=== PATIENT | male | born 1935 | race Caucasian/White ===

== ENCOUNTER 2025-03-26 12:29 | Emergency (ER) | payer OTHER, SELFPAY ==
--- NOTE | ~2025-03-26 | XR_ITS ---
XR shoulder RT min 2V 03/26/2025 13:12 Indication: Right shoulder pain after fall Procedure: 4 views right shoulder Comparison: No prior studies for comparison. Findings: There is moderate-severe polyarticular osteoarthritis of the shoulder. No fracture or traum atic malalignment. No soft tissue abnormality. No foreign bodies. Impression: 1: Moderate-severe polyarticular osteoarthritis. Reviewed, dictated and finalized at location A. Impression: 1: Moderate-severe polyarticular osteoarthritis.
--- NOTE | ~2025-03-26 | CT_ITS ---
EXAMINATION: CT cervical spine wo con DATE: 03/26/2025 12:59 INDICATION: Fall with head injury TECHNIQUE: Computed tomography (CT) of the cervical spine was performed without intravenous contrast. Automated exposure control and iterative reconstruction technique were employed. The dose-length pro duct was 378.33 mGy-cm. COMPARISON: None FINDINGS: Severe osteoarthritis at the atlantoaxial articulation. 8 degrees cervical levocurvature. There is st raightening of the normal cervical lordosis. 1-2 mm anterolisthesis C7 on T1 and T2 on T3. Vertebral body heights are normal. No acute fracture. Severe disc height loss with degenerative endplate change s at C4-C5, C5-C6, C6-C7 and T1-T2, moderate to severe disc height loss at C7-T1, moderate disc heigh t loss at C3-C4 and T2-T3 and mild disc height loss at C2-C3. There posterior disc osteophyte complex es contributing to mild central canal stenosis at C3-C4 through C6-C7. Suggestion of disc bulges with minimal disc height loss at C7-T1 and T1-T2. There is multilevel severe cervical facet and uncoverte bral osteoarthritis. Secondary osseous fusion across the right C2-C3 facet joint. There is moderate n eural from stenosis on the left at C2-C3, C4-C5, C5-C6 and and T2-T3 and on the left at C3-C4, C5-C6 and T2-3. Mild neural from stenosis at the remaining cervical and upper thoracic neural foramina. Ath erosclerotic calcifications at the bilateral carotid bulbs. Cervical soft tissues are otherwise unrem arkable. Mild calcified biapical pleural-parenchymal scarring. IMPRESSION: 1. Severe cervical spondylosis with no acute osseous abnormality. Reviewed, dictated and finalized at location A.
--- NOTE | ~2025-03-26 | CT_ITS ---
EXAMINATION: CT brain wo con DATE: 03/26/2025 12:59 INDICATION: Fall with posterior head injury TECHNIQUE: Computed tomography (CT) of the head was performed without intravenous contrast. Sagittal and coronal reconstructions were performed. The mA was adjusted according to patient size. Iterative reconstruction technique was employed. The dose-length product was 605.33 mGy-cm. COMPARISON: None FINDINGS: Small right posterior parietal scalp contusion. No fracture. No acute intracranial hemorrhage, acute infarction or abnormal extra axial fluid collection. There is mild scattered white matter hypoattenua tion consistent with chronic small vessel ischemic disease. Symmetric prominence of the sulci consist ent with mild age-appropriate diffuse cerebral volume loss. Ventricles are normal and symmetric. No m ass/mass effect. Changes of bilateral intraocular lens replacement. The orbits and mastoid air cells are normal. Mucosal thickening and scattered mucous in the paranasal sinuses. IMPRESSION: 1. No fracture or acute intracranial process. 2. Age-related changes including mild diffuse volume loss and mild scattered white matter hypoattenua tion consistent with chronic small vessel ischemic disease. 3. Sinus disease. Reviewed, dictated and finalized at location A. IMPRESSION: 1. No fracture or acute intracranial process. 2. Age-related changes including mild diffuse volume loss and mild scattered wh ite matter hypoattenuation consistent with chronic small vessel ischemic diseas e. 3. Sinus disease.
[2025-03-26 12:37] VITALS: BP 150/84; PULSE 86; RESP 16; TEMP 36.8; O2SAT 98
--- NOTE | 2025-03-26 13:45 | ED.GENADULT ---
HPI - General Adult General Chief complaint: Fall Stated complaint: fall Time Seen by Provider: 03/26/25 13:06 History of Present Illness HPI narrative: 89-year-old male presenting to the emergency department for evaluation for laceration to his posterior scalp. Patient is preparing for a move and was getting boxes off a shelf when he stepped backwards, missed a step and did strike his head. Patient states he has been feeling well prior to and after the head injury. Patient denies any complaint other than his posterior scalp. Patient is not on any blood thinners. Related Data Home Medications ?Medication ?Instructions ?Recorded ?Confirmed ?Last Taken ?Type ascorbic acid (vitamin C) 500 mg mg PO 05/10/23 05/10/23 Unknown History capsule citalopram 20 mg tablet 20 mg PO DAILY 05/10/23 05/10/23 Unknown History doxazosin 4 mg tablet 4 mg PO DAILY 05/10/23 05/10/23 Unknown History glucosamine sulfate 1,000 mg tablet 1,000 mg PO BID 05/10/23 05/10/23 Unknown History multivitamin 1 tablet PO DAILY 05/10/23 05/10/23 Unknown History omeprazole 20 mg capsule,delayed 20 mg PO DAILY 05/10/23 05/10/23 Unknown History release simvastatin 40 mg tablet 40 mg PO DAILY 05/10/23 05/10/23 Unknown History Allergies Allergy/AdvReac Type Severity Reaction Status Date / Time amlodipine Allergy Unknown fatigue Verified 03/26/25 12:51 Review of Systems Review of Systems: All systems reviewed & are unremarkable except as noted in HPI and below PMFSH Family History Family History (Updated 05/10/23 @ 11:18 by Colette Ramos CMA) Father Heart disease Mother Brain cancer Grandparent Cerebrovascular accident Social History Social History (Updated 05/10/23 @ 11:12 by Colette Ramos CMA) Smoking status: Never smoker Alcohol intake: current Lack of Transportation: No Lack of Food: Never True Current Housing: I Have Housing Concerned About Future Housing: No Difficulty Paying Gas/Electric Bills: No Difficulty Paying for Meds: No Currently Unemployed: No Education: Trade/Vocational Certificate Difficulty w/ Childcare or Family Care: No Exam Narrative: APPEARANCE: Well appearing, no pain, no distress, well-nourished. HEAD: normocephalic, posterior scalp laceration. EYES: PERRLA/EOMI, conjunctivae clear. NOSE: Normal no drainage EARS:TMS clear with good light reflex. THROAT: Pharynx clear, no exudate. NECK: Supple. No adenopathy, no masses. RESPIRATORY: Airway patent, respirations nonlabored. Clear to auscultation bilaterally, no rales, rhonchi, wheezing. CARDIOVASCULAR: Regular rate and rhythm without murmurs rubs or gallops. ABDOMINAL: Soft, nontender, nondistended, normal bowel sounds MUSCULOSKELETAL: Tenderness to right shoulder with no deformity. NEURO: Alert. Cranial nerves II through XII intact. Good gait. Good coordination Course Vital Signs Vital signs: Vital Signs Temperature 98.2 F 03/26/25 12:37 Pulse Rate 86 03/26/25 12:37 Respiratory Rate 16 03/26/25 12:37 Blood Pressure 150/84 H 03/26/25 12:37 Pulse Oximetry 98 03/26/25 12:37 Temperature 98.2 F 03/26/25 12:37 Pulse Rate 86 03/26/25 12:37 Respiratory Rate 16 03/26/25 12:37 Blood Pressure 150/84 H 03/26/25 12:37 Pulse Oximetry 98 03/26/25 12:37 Procedures Laceration Laceration 1: Time: 13:50 Site: scalp Size (cm): 2 Description: linear Depth: simple, single layer Pre-repair: wound explored and irrigated ====== Skin Level ====== Skin layer closed with: serafin Number of sutures: 2 ====== Subcutaneous Layer ====== ====== Muscle Layer ====== ====== Tendon Layer ====== Medical Decision Making [facility] Narrative Medical decision making narrative: 81-year-old male presented to the emergency department for evaluation after having a mechanical fall striking his posterior scalp. Head neck CT were negative for acute intracranial and cervical spine abnormality. Shoulder x-ray showed no acute fracture dislocation. Patient's laceration was repaired as described in the procedure note. Patient was able to ambulate it is baseline. Patient is eager for discharge home. Patient and family comfortable with plan for discharge and close follow-up. Differential Diagnosis Differential Diagnosis: Subdural hematoma, subarachnoid hemorrhage, cervical spine fracture, concussion, contusion Vital Signs Vital Signs: Vital Signs Temperature 98.2 F 03/26/25 12:37 Pulse Rate 86 03/26/25 12:37 Respiratory Rate 16 03/26/25 12:37 Blood Pressure 150/84 H 03/26/25 12:37 Pulse Oximetry 98 03/26/25 12:37 Temperature 98.2 F 03/26/25 12:37 Pulse Rate 86 03/26/25 12:37 Respiratory Rate 16 03/26/25 12:37 Blood Pressure 150/84 H 03/26/25 12:37 Pulse Oximetry 98 03/26/25 12:37 Imaging Data Radiologist's impression: Impressions Head CT 03/26/25 13:04 IMPRESSION: 1. No fracture or acute intracranial process. 2. Age-related changes including mild diffuse volume loss and mild scattered white matter hypoattenuation consistent with chronic small vessel ischemic disease. 3. Sinus disease. Cervical Spine CT 03/26/25 13:12 IMPRESSION: 1. Severe cervical spondylosis with no acute osseous abnormality. Shoulder X-Ray 03/26/25 13:25 Impression: 1: Moderate-severe polyarticular osteoarthritis. Discharge Plan Discharge Clinical Impression: Laceration of scalp, Acute shoulder pain Patient Disposition: Home Condition: Stable Instructions: Antibiotic Form, Head Injury (ED), Staple Care (ED) Additional Instructions: Serafin will need to be removed in 5-7 days. Have close follow-up with your primary care physician. Patient Language: Tamaz[place] Prescriptions: No Action glucosamine sulfate 1,000 mg tablet 1,000 mg PO BID Rx Instructions: administer with meals citalopram 20 mg tablet 20 mg PO DAILY omeprazole 20 mg capsule,delayed release(DR/EC) 20 mg PO DAILY simvastatin 40 mg tablet 40 mg PO DAILY doxazosin 4 mg tablet 4 mg PO DAILY multivitamin Tablet 1 tablet PO DAILY ascorbic acid (vitamin C) 500 mg capsule PO Follow-up/Referrals: UNKNOWN,DOCTOR [Primary Care Provider] -
== END 2025-03-26 14:20 | disposition home or self-care (01) ==
PROVIDERS: Emergency Provider Emergency Medicine
DX: S01.01XA Laceration without foreign body of scalp, initial encounter (principal); W10.9XXA Fall (on) (from) unspecified stairs and steps, initial encounter
CPT/HCPCS: 12001; 70450; 72125; 73030; 99284